=== PATIENT | female | born 1995 | race Caucasian/White ===

== ENCOUNTER 2018-01-30 02:34 | Emergency (ER) | payer OTHER ==
[~2018-01-30] VITALS: Ht 162.6 cm; Wt 89.3 kg
[2018-01-30 02:40] VITALS: Ht 162.6 cm; Wt 89.3 kg
[2018-01-30 04:20] VITALS: BP 123/62
== END 2018-01-30 04:20 | disposition home or self-care (01) ==
LOC: ED 02:34
DX: K29.70 Gastritis, unspecified, without bleeding (principal)
CPT/HCPCS: Q0162

== ENCOUNTER 2018-12-02 18:15 | Emergency (ER) | payer OTHER ==
[~2018-12-02] VITALS: Ht 162.6 cm; Wt 95.7 kg
[2018-12-02 18:33] VITALS: Ht 162.6 cm; Wt 95.7 kg
[2018-12-02 19:52] VITALS: BP 145/80
== END 2018-12-02 19:53 | disposition home or self-care (01) ==
LOC: ED 18:15
DX: J06.9 Acute upper respiratory infection, unspecified (principal)

== ENCOUNTER 2018-12-11 18:17 | Emergency (ER) | payer OTHER ==
[~2018-12-11] VITALS: Ht 162.6 cm; Wt 95.7 kg
[2018-12-11 19:42] VITALS: Ht 162.6 cm; Wt 95.7 kg
[2018-12-11 20:23] LABS: BASOPHIL % 0.5 % (0-2); PLATELET COUNT 238 x10^3mcL (130-400); RED CELL DISTRIBUTION WIDTH 13.9 % (11.5-14.5)
[2018-12-11 22:22] VITALS: BP 118/71
== END 2018-12-11 22:22 | disposition home or self-care (01) ==
LOC: ED 18:17
PROVIDERS: Emergency Medicine
DX: O20.0 Threatened abortion (principal); Z3A.11 11 weeks gestation of pregnancy
CPT/HCPCS: 36415

== ENCOUNTER 2019-04-14 20:32 | Emergency (ER) | payer OTHER ==
[~2019-04-14] VITALS: Ht 162.6 cm; Wt 98.4 kg
[2019-04-14 21:16] VITALS: BP 123/72; Ht 162.6 cm; Wt 98.4 kg
== END 2019-04-15 00:47 | disposition home or self-care (01) ==
LOC: ED 20:32
DX: J20.9 Acute bronchitis, unspecified (principal)

== ENCOUNTER 2019-12-08 15:00 | Emergency (ER) | payer OTHER ==
[~2019-12-08] VITALS: Ht 162.6 cm; Wt 105.2 kg
[2019-12-08 17:25] VITALS: BP 132/71
== END 2019-12-08 17:25 | disposition home or self-care (01) ==
LOC: ED 15:00
DX: S60.021A Contusion of right index finger without damage to nail, initial encounter (principal); W22.8XXA Striking against or struck by other objects, initial encounter; Y93.89 Activity, other specified; Y92.89 Other specified places as the place of occurrence of the external cause; Y99.8 Other external cause status